=== PATIENT | female | born 1945 ===

== ENCOUNTER → 2021-09-16 | Outpatient (CLI) | payer OTHER ==
[~2021-09-16] MED LIST: FLONASE16 GM NASAL; ZANTAC300 MG PO; ZYRTEC10 MG PO
== END | disposition home or self-care (01) ==
LOC: MAMO-SONO 09:45
PROVIDERS: ATTEND Internal Medicine Geriatric Medicine
DX: N60.01 Solitary cyst of right breast (principal); R92.0 Mammographic microcalcification found on diagnostic imaging of breast; N64.89 Other specified disorders of breast; Z12.31 Encounter for screening mammogram for malignant neoplasm of breast

== ENCOUNTER 2022-09-02 12:15 | Inpatient (IN) | payer OTHER ==
[~2022-09-02] VITALS: Ht 167.6 cm; Wt 50.3 kg
[2022-09-03] MEDS ORDERED: LIPITOR20 MG (14:48)
[2022-09-07] MEDS ORDERED: LIDOCAINE HC35.44 GM (13:29)
[2022-09-07] MEDS ORDERED: WARFARIN SODIUM4 MG (13:29)
[2022-09-07] MEDS ORDERED: SIMBRINZA 1%-0.28 ML (13:29)
[2022-09-07] MEDS ORDERED: RESTASIS1 EACH (13:29)
[2022-09-07] MEDS ORDERED: PANTOPRAZOLE SO40 MG (13:29)
[2022-09-07] MEDS ORDERED: METOPROLOL SUCC25 MG (13:29)
[2022-09-16] MEDS ORDERED: WARFARIN SODIUM4 MG PO (13:09)
[2022-09-16] MEDS ORDERED: TOPROL XL25 M1 PO (13:09)
[2022-09-16] MEDS ORDERED: WARFARIN SODIUM3 MG PO (13:09)
[2022-09-16] MEDS ORDERED: LOSARTAN POTASS25 MG PO (13:10)
[2022-09-16] MEDS ORDERED: APETIGEN P12.5 MG/15 PO (13:10)
[2022-09-16] MEDS ORDERED: PANTOPRAZOLE SO40 MG PO (13:10)
== END 2022-09-16 17:04 | disposition home or self-care (01) | DRG 330 ==
LOC: SURH 09-07 06:34 → O/R 09-07 06:34 → SURH 09-07 12:15
PROVIDERS: ADMIT Surgery; ATTEND Surgery
PROC: 0DTP4ZZ Resection of Rectum, Percutaneous Endoscopic Approach (ICD-10-PCS; 2022-09-07)
PROC: 0DTQ4ZZ Resection of Anus, Percutaneous Endoscopic Approach (ICD-10-PCS; 2022-09-07)
PROC: 0DBN4ZZ Excision of Sigmoid Colon, Percutaneous Endoscopic Approach (ICD-10-PCS; 2022-09-07)
PROC: 0JQC0ZZ Repair Pelvic Region Subcutaneous Tissue and Fascia, Open Approach (ICD-10-PCS; 2022-09-07)
PROC: 0D1N4Z4 Bypass Sigmoid Colon to Cutaneous, Percutaneous Endoscopic Approach (ICD-10-PCS; principal; 2022-09-07 12:15)
PROC: 30233N1 Transfusion of Nonautologous Red Blood Cells into Peripheral Vein, Percutaneous Approach (ICD-10-PCS; 2022-09-09)
DX: C21.1 Malignant neoplasm of anal canal (principal); C20 Malignant neoplasm of rectum; K92.2 Gastrointestinal hemorrhage, unspecified; D62 Acute posthemorrhagic anemia; Z74.09 Other reduced mobility; I11.9 Hypertensive heart disease without heart failure; I35.0 Nonrheumatic aortic (valve) stenosis; Z95.4 Presence of other heart-valve replacement